=== PATIENT | female | born 1955 | race Caucasian/White ===

== ENCOUNTER 2016-09-25 13:31 | Emergency (ER) | payer MEDICAID ==
[~2016-09-25] VITALS: Ht 165.1 cm; Wt 84.0 kg
[2016-09-25 17:38] VITALS: BP 135/80
== END 2016-09-25 17:38 | disposition home or self-care (01) ==
LOC: ED 13:31
DX: S16.1XXA Strain of muscle, fascia and tendon at neck level, initial encounter (principal); I10 Essential (primary) hypertension; W17.89XA Other fall from one level to another, initial encounter; Y93.89 Activity, other specified; Y99.8 Other external cause status; Y92.098 Other place in other non-institutional residence as the place of occurrence of the external cause